=== PATIENT | male | born 1970 | race Caucasian/White ===

== ENCOUNTER 2018-03-19 05:59 | Emergency (ER) | payer BC ==
[~2018-03-19] VITALS: Ht 172.7 cm; Wt 86.4 kg
[2018-03-19] MEDS ORDERED: enoxaparin 100mg/ml syringe SUBCUT ONE (07:20)
[2018-03-19 07:51] LABS: CLARITY,URINE CLEAR (Clear); COLOR,URINE YELLOW (Yellow); GLUCOSE, URINE NEGATIVE (Neg); KETONES,URINE NEGATIVE (Neg); LEUKOCYTE ESTERASE ,URINE NEGATIVE (Neg); NITRITES, URINE NEGATIVE (Neg); OCCULT BLOOD,URINE NEGATIVE (Neg); PH,URINE 5.5 (4.8-8.0); PROTEIN,URINE NEGATIVE (Neg); UROBILINOGEN,URINE 0.2 E.U/dL (0.2-1.0)
[2018-03-19 07:52] LABS: UA COLLECTION TYPE URINAL
[2018-03-19] MEDS ORDERED: testosterone (08:04)
[2018-03-19] MEDS ORDERED: heparin 10,000 units/1 ML INJ IV ONE (08:10)
[2018-03-19 08:33] LABS: BASOPHILS % (AUTO) 0.3 % (0-1); EOSINOPHILS # (AUTO) 0.1 X10'3 (0-0.9); EOSINOPHILS % (AUTO) 1.9 % (0-6); HEMATOCRIT 42.8 % (42.0-52.0); HEMOGLOBIN 14.9 g/dl (14.0-17.9); LYMPHOCYTES # (AUTO) 0.9 X10'3 (1.1-4.8); LYMPHOCYTES % (AUTO) 15.7 % (21-51); MEAN CORPUSCULAR HEMOGLOBIN 31.4 PG (27.0-31.0); MEAN CORPUSCULAR HGB CONC 34.9 % (33.0-36.5); MEAN CORPUSCULAR VOLUME 90.1 FL (78-98); MEAN PLATELET VOLUME 8.1 FL (7.4-10.4); MONOCYTES # (AUTO) 0.4 X10'3 (0-0.9); MONOCYTES % (AUTO) 7.2 % (2-12); NEUTROPHILS # (AUTO) 4.4 X10'3 (1.8-7.7); NEUTROPHILS % (AUTO) 74.9 % (42-75); PLATELET COUNT 149 X10'3 (140-440); RED BLOOD COUNT 4.75 X10'6 (4.70-6.10); RED CELL DISTRIBUTION WIDTH 12.9 % (11.5-14.5); WHITE BLOOD COUNT 5.8 X10'3 (4.5-11.0)
[2018-03-19 08:47] LABS: ALANINE AMINOTRANSFERASE 35 U/L (12-78); ALBUMIN 3.7 G/DL (3.4-5.0); ANION GAP 10 (8-16); ASPARTATE AMINO TRANSFERASE 20 U/L (10-37); BILIRUBIN,TOTAL 1.3 MG/DL (0.1-1.0); BLOOD UREA NITROGEN 17 MG/DL (7-18); BUN/CREATININE RATIO 12.2 (5.4-32.0); CALCIUM 9.2 MG/DL (8.5-10.1); CHLORIDE 104 MMOL/L (99-107); CREATININE 1.39 MG/DL (0.60-1.10); GLUCOSE 100 MG/DL (70-104); POTASSIUM 4.3 MMOL/L (3.5-5.1); SODIUM 141 MMOL/L (135-145); TOTAL CARBON DIOXIDE 27.3 MMOL/L (24-32); TOTAL PROTEIN 7.4 G/DL (6.4-8.2); eGFR 54 ML/MIN
[2018-03-19 08:48] LABS: ALKALINE PHOSPHATASE 76 IU/L (46-116)
[2018-03-19 08:51] LABS: TROPONIN I < 0.04 NG/ML (0.0-0.05)
[2018-03-19] MEDS ORDERED: APIX5TAB3 PO (13:59)
[2018-03-19 15:23] VITALS: BP 134/78
[2018-03-21 15:07] LABS: PROTEIN S, FREE 129 % (57-157); PROTEIN S, TOTAL 93 % (60-150)
[2018-03-22 05:11] LABS: ANTITHROMBIN ACTIVITY 94 % (75-135); ANTITHROMBIN ANTIGEN 90 % (72-124)
== END 2018-03-19 15:20 | disposition home or self-care (01) ==
LOC: ER 06:00
DX: I82.402 Acute embolism and thrombosis of unspecified deep veins of left lower extremity (principal); Z85.89 Personal history of malignant neoplasm of other organs and systems; Z79.899 Other long term (current) drug therapy; Z98.890 Other specified postprocedural states
CPT/HCPCS: 36415; 71045; 80053; 81003; 81479; 83891; 83894; 83898; 84484; 85025; 85240; 85300; 85301; 85303; 85305; 85306; 86146; 86147; 93005; 93971; 96372; 99285; J1650; 85597

== ENCOUNTER 2020-11-29 10:47 | Emergency (ER) | payer BC ==
[~2020-11-29] VITALS: Ht 172.7 cm; Wt 95.7 kg
[~2020-11-29 10:47] MED LIST: APIX5TAB3 PO; testosterone
[2020-11-29 10:49] VITALS: BP 132/82
--- NOTE | 2020-11-29 10:59 | NUR ---
PT REFUSED W/C FROM TRIAGE TO ROOM
--- NOTE | 2020-11-29 11:20 | NUR ---
ULTRASOUND IN ROOM, AWAITING LAB DRAW UNTIL AFTER COMPLETE.
[2020-11-29] MEDS ORDERED: APIX5TAB3 PO (11:52)
[2020-11-29 12:04] LABS: HEMOGLOBIN 14.2 g/dl (14.0-17.9); PLATELET COUNT 184 X10'3 (140-440)
[2020-11-29 12:06] LABS: BASOPHILS % (AUTO) 0.7 % (0-1); EOSINOPHILS # (AUTO) 0.1 X10'3 (0-0.9); EOSINOPHILS % (AUTO) 1.4 % (0-6); HEMATOCRIT 41.7 % (42.0-52.0); LYMPHOCYTES % (AUTO) 19.9 % (21-51); MEAN CORPUSCULAR HEMOGLOBIN 31.4 PG (27.0-31.0); MEAN CORPUSCULAR VOLUME 92.3 FL (78-98); MEAN PLATELET VOLUME 8.2 FL (7.4-10.4); MONOCYTES # (AUTO) 0.3 X10'3 (0-0.9); MONOCYTES % (AUTO) 6.5 % (2-12); NEUTROPHILS # (AUTO) 3.6 X10'3 (1.8-7.7); NEUTROPHILS % (AUTO) 71.5 % (42-75); RED BLOOD COUNT 4.52 X10'6 (4.70-6.10); RED CELL DISTRIBUTION WIDTH 12.5 % (11.5-14.5); WHITE BLOOD COUNT 5.1 X10'3 (4.5-11.0)
[2020-11-29 12:15] LABS: ALANINE AMINOTRANSFERASE 58 U/L (12-78); ALBUMIN 3.8 G/DL (3.4-5.0); ALBUMIN/GLOBULIN RATIO 1.2 (1.1-1.5); ALKALINE PHOSPHATASE 56 IU/L (46-116); ANION GAP 9 (8-16); ASPARTATE AMINO TRANSFERASE 23 U/L (10-37); BILIRUBIN,TOTAL 0.8 MG/DL (0.1-1.0); BLOOD UREA NITROGEN 26 MG/DL (7-18); BUN/CREATININE RATIO 17.9 (5.4-32.0); CALCIUM 9.2 MG/DL (8.5-10.1); CHLORIDE 104 MMOL/L (99-107); CREATININE 1.45 MG/DL (0.60-1.10); GLUCOSE 93 MG/DL (70-104); POTASSIUM 4.2 MMOL/L (3.5-5.1); SODIUM 139 MMOL/L (135-145); TOTAL CARBON DIOXIDE 26.5 MMOL/L (24-32); eGFR 51 ML/MIN
== END 2020-11-29 13:37 | disposition home or self-care (01) ==
LOC: ER 10:48
DX: I82.4Z2 Acute embolism and thrombosis of unspecified deep veins of left distal lower extremity (principal); Z85.9 Personal history of malignant neoplasm, unspecified; Z98.890 Other specified postprocedural states; Z79.899 Other long term (current) drug therapy
CPT/HCPCS: 80053; 85025; 93971; 99284

== ENCOUNTER 2021-01-07 14:40 | Emergency (ER) | payer BC ==
[~2021-01-07] VITALS: Ht 175.3 cm; Wt 94.8 kg
[2021-01-07] MEDS ORDERED: HYDROcodone/acetaminophen 5mg/325mg tablet PO ONE (15:40)
[2021-01-07] MEDS ORDERED: ondansetron 4mg rapidly disintigrating tab PO ONE (15:40)
[2021-01-07 15:53] LABS: BASOPHILS % (AUTO) 0.9 % (0-1); EOSINOPHILS % (AUTO) 0.9 % (0-6); HEMATOCRIT 41.1 % (42.0-52.0); HEMOGLOBIN 13.6 g/dl (14.0-17.9); LYMPHOCYTES # (AUTO) 2.6 X10'3 (1.1-4.8); MEAN CORPUSCULAR HEMOGLOBIN 30.9 PG (27.0-31.0); MEAN CORPUSCULAR HGB CONC 33.1 g/dL (33.0-36.5); MEAN CORPUSCULAR VOLUME 93.4 FL (78-98); MEAN PLATELET VOLUME 7.1 FL (7.4-10.4); MONOCYTES # (AUTO) 0.6 X10'3 (0-0.9); MONOCYTES % (AUTO) 11.6 % (2-12); NEUTROPHILS # (AUTO) 1.6 X10'3 (1.8-7.7); NEUTROPHILS % (AUTO) 32.6 % (42-75); PLATELET COUNT 177 X10'3 (140-440); WHITE BLOOD COUNT 4.8 X10'3 (4.5-11.0)
[2021-01-07 16:11] LABS: PARTIAL THROMBOPLASTIN TIME 26 SECONDS (22-32)
[2021-01-07] MEDS ORDERED: apixaban 5mg tablet PO ONE (16:45)
[2021-01-07] MEDS ORDERED: apixaban 5mg tablet PO SCH (16:45)
[2021-01-07] MEDS ORDERED: APIX5TAB3 PO (16:48)
[2021-01-07 17:04] LABS: NUCLEATED RED BLOOD CELLS 1 /100WBC (0-0); TOTAL CELLS COUNTED 200
[2021-01-07 17:05] LABS: PLATELET ESTIMATE NORMAL
[2021-01-07 17:10] VITALS: BP 134/97
== END 2021-01-07 17:08 | disposition home or self-care (01) ==
LOC: ER 14:40
DX: I82.402 Acute embolism and thrombosis of unspecified deep veins of left lower extremity (principal); Z98.890 Other specified postprocedural states; Z79.01 Long term (current) use of anticoagulants
CPT/HCPCS: 36415; 85007; 85025; 85610; 85730; 93971; 99284

== ENCOUNTER 2023-01-20 21:28 | Emergency (ER) | payer BC ==
[~2023-01-20] VITALS: Ht 175.3 cm; Wt 89.0 kg
[2023-01-20 21:59] LABS: EOSINOPHILS # (AUTO) 0.1 X10'3 (0-0.9); MEAN CORPUSCULAR HEMOGLOBIN 32.2 PG (27.0-31.0); MONOCYTES # (AUTO) 0.6 X10'3 (0-0.9)
[2023-01-20 22:00] LABS: BASOPHILS # (AUTO) 0.1 X10'3 (0-0.2); BASOPHILS % (AUTO) 0.7 % (0-1); EOSINOPHILS % (AUTO) 0.8 % (0-6); HEMATOCRIT 38.7 % (42.0-52.0); HEMOGLOBIN 13.3 g/dl (14.0-17.9); LYMPHOCYTES % (AUTO) 28.3 % (21-51); MEAN CORPUSCULAR HGB CONC 34.4 g/dL (33.0-36.5); MEAN CORPUSCULAR VOLUME 93.7 FL (78-98); MEAN PLATELET VOLUME 8.2 FL (7.4-10.4); NEUTROPHILS # (AUTO) 4.2 X10'3 (1.8-7.7); NEUTROPHILS % (AUTO) 61.2 % (42-75); PLATELET COUNT 219 X10'3 (140-440); RED BLOOD COUNT 4.13 X10'6 (4.70-6.10); RED CELL DISTRIBUTION WIDTH 13.4 % (11.5-14.5); WHITE BLOOD COUNT 6.9 X10'3 (4.5-11.0)
--- NOTE | 2023-01-20 22:04 | NUR ---
Patient resting comfortably on gurney, at bedside
[2023-01-20 22:10] LABS: APTT 29 SECONDS (22-32)
[2023-01-20 22:12] LABS: ALANINE AMINOTRANSFERASE 36 U/L (12-78); ALBUMIN 3.7 G/DL (3.4-5.0); ALKALINE PHOSPHATASE 61 IU/L (46-116); ANION GAP 12 (8-16); ASPARTATE AMINO TRANSFERASE 16 U/L (10-37); BILIRUBIN,TOTAL 0.9 MG/DL (0.1-1.0); BLOOD UREA NITROGEN 21 MG/DL (7-18); BUN/CREATININE RATIO 15.2 (10.0-20.0); CHLORIDE 105 MMOL/L (99-107); CREATININE 1.38 MG/DL (0.60-1.10); GLUCOSE 95 MG/DL (70-104); POTASSIUM 4.1 MMOL/L (3.5-5.1); SODIUM 141 MMOL/L (135-145); TOTAL CARBON DIOXIDE 24.2 MMOL/L (24-32); TOTAL PROTEIN 7.4 G/DL (6.4-8.2); eGFR 54 ML/MIN
--- NOTE | 2023-01-20 23:02 | NUR ---
Patient up to the bathroom w/o problem
--- NOTE | 2023-01-20 23:26 | NUR ---
Patient with [employer] technician.
[2023-01-21 00:57] VITALS: BP 125/82
== END 2023-01-21 01:01 | disposition home or self-care (01) ==
LOC: ER 21:29
DX: M25.571 Pain in right ankle and joints of right foot (principal); R53.1 Weakness; Z79.899 Other long term (current) drug therapy
CPT/HCPCS: 36415; 80053; 85025; 85610; 85730; 93005; 93971; 99284; 99285

== ENCOUNTER 2023-11-05 08:26 | Inpatient (IN) | payer BC ==
[2023-10-30 14:17] LABS: BASOPHILS % (AUTO) 0.9 % (0-1); BILIRUBIN,URINE NEGATIVE (Neg); CLARITY,URINE CLEAR (Clear); COLOR,URINE YELLOW (Yellow); EOSINOPHILS # (AUTO) 0.1 X10'3 (0-0.9); EOSINOPHILS % (AUTO) 1.1 % (0-6); GLUCOSE, URINE NEGATIVE (Neg); KETONES,URINE NEGATIVE (Neg); LEUKOCYTE ESTERASE ,URINE NEGATIVE (Neg); LYMPHOCYTES # (AUTO) 1.5 X10'3 (1.1-4.8); LYMPHOCYTES % (AUTO) 31.5 % (21-51); MEAN CORPUSCULAR VOLUME 90.9 FL (78-98); MEAN PLATELET VOLUME 7.8 FL (7.4-10.4); MONOCYTES # (AUTO) 0.3 X10'3 (0-0.9); MONOCYTES % (AUTO) 7.2 % (2-12); NEUTROPHILS # (AUTO) 2.8 X10'3 (1.8-7.7); NEUTROPHILS % (AUTO) 59.3 % (42-75); NITRITES, URINE NEGATIVE (Neg); OCCULT BLOOD,URINE NEGATIVE (Neg); PRE OP HEMATOCRIT 41.5 % (42.0-52.0); PRE OP HEMOGLOBIN 14.1 g/dL (14.0-17.9); PRE OP PLATELET COUNT 206 X10'3 (140-440); PRE OP WHITE BLOOD COUNT 4.7 10'3 (4.8-10.8); PROTEIN,URINE NEGATIVE (Neg); RED BLOOD COUNT 4.57 X10'6 (4.70-6.10); RED CELL DISTRIBUTION WIDTH 14.3 % (11.5-14.5); UROBILINOGEN,URINE 0.2 E.U/dL (0.2-1.0)
[2023-10-30 14:25] LABS: UA COLLECTION TYPE CLN CATCH MIDSTREAM
[2023-10-30 14:39] LABS: ALBUMIN 3.7 G/DL (3.4-5.0); ALBUMIN/GLOBULIN RATIO 1.1 (1.1-1.5); ALKALINE PHOSPHATASE 81 IU/L (46-116); BLOOD UREA NITROGEN 19 MG/DL (7-18); BUN/CREATININE RATIO 16.8 (10.0-20.0); CHLORIDE 108 MMOL/L (99-107); CREATININE 1.13 MG/DL (0.60-1.10); PRE OP ALT 57 U/L (30-65); PRE OP ANION GAP 6 (8-16); PRE OP AST 25 U/L (10-37); PRE OP BILIRUB, TOTAL 0.7 MG/DL (0.0-1.0); PRE OP GLUCOSE 100 MG/DL (70-104); PRE OP POTASSIUM 4.2 MMOL/L (3.4-5.1); PRE OP SODIUM 143 MMOL/L (135-145); TOTAL CARBON DIOXIDE 28.7 MMOL/L (24-32); TOTAL PROTEIN 7.2 G/DL (6.4-8.2); eGFR 67 ML/MIN
[2023-11-05] VITALS (21 sets, daily range): BP systolic 114–142; BP diastolic 80–102; PULSE 60–86; RESP 10–16; TEMP 97.6–98.4; O2SAT 90–98
[~2023-11-05] VITALS: Ht 172.7 cm; Wt 99.8 kg
[2023-11-05] MEDS: DOCUMENT DATE & TIME OF BETA-BLOCKER PO ONE (05:30)
[~2023-11-05 08:26] MED LIST changes: +ATOR-2 PO; +CARV-50 PO; +FEBU80TA3 PO; -testosterone
[2023-11-05] MEDS: cefazolin 2gm/D5W 100mL 100 ML IV ONE (09:01)
[2023-11-05] MEDS: famotidine 20mg tablet PO ONE (09:04)
[2023-11-05] MEDS: vancomycin 1,500 MG in NS 300ml IV soln IV ONE (09:48)
[2023-11-05] MEDS: ringers solution, lacted 1,000 ML IV SCH ×2 (09:49→12:20)
[2023-11-05] MEDS ORDERED: fentaNYL/PF 50MCG/1 ML 2ML syringe ONE (12:04)
[2023-11-05] MEDS ORDERED: propofol inj 20 ML IV ONE (12:05)
[2023-11-05] MEDS ORDERED: midazolam 1 mg/ML 2ml injection ONE (12:05)
[2023-11-05] MEDS ORDERED: dexamethasone sod phosphate 4mg/ml inj. ONE (12:05)
[2023-11-05] MEDS ORDERED: rocuronium 10mg/ml inj IV ONE (12:05)
[2023-11-05] MEDS ORDERED: LIDOcaine 1%/PF 5ML 10 MG/ML VIAL ONE (12:05)
[2023-11-05] MEDS ORDERED: iohexol 350 MG/ML 50ML vial IV ONE (12:11)
[2023-11-05] MEDS ORDERED: ondansetron/PF 4mg/2ml inj IV PRN ×2 (12:20→13:15)
[2023-11-05] MEDS ORDERED: meperidine/PF 25mg/ml syringe IV PRN ×2 (12:20)
[2023-11-05] MEDS ORDERED: labetalol 20mg/4ml (5mg/ml) syringe IV PRN (12:20)
[2023-11-05] MEDS ORDERED: enalaprilat dihydrate 2.5mg/2ml vial IV PRN (12:20)
[2023-11-05] MEDS ORDERED: morphine 4 MG/ML inj SYRINge IV PRN (12:20)
[2023-11-05] MEDS ORDERED: proCHLORperazine 10 MG/2 ml inj IV PRN (12:20)
[2023-11-05] MEDS ORDERED: neostigmine methylsulfate 1 MG/ML 10ml vial ONE (12:23)
[2023-11-05] MEDS ORDERED: glycopyrrolate 0.2mg/ml inj ONE (12:23)
[2023-11-05] MEDS ORDERED: protamine sulf. 10mg/ml inj. IV ONE (12:23)
[2023-11-05] MEDS ORDERED: sevoflurane 250ml liquid IH ONE (12:23)
[2023-11-05] MEDS ORDERED: heparin 1,000 units/ml 10ml inj ONE (12:23)
[2023-11-05] MEDS ORDERED: ondansetron/PF 4mg/2ml inj ONE (12:40)
[2023-11-05] MEDS ORDERED: protamine sulfate 10mg/ml inj. ONE (13:06)
[2023-11-05] MEDS ORDERED: magnesium 2GM in 50ml NS 50 ML IV PRN (13:15)
[2023-11-05] MEDS ORDERED: potassium Cl 40MEQ/1/2NS 520ml 520 ML IV PRN (13:15)
[2023-11-05] MEDS ORDERED: pantoprazole 40mg Tablet.DR PO PRN (13:15)
[2023-11-05] MEDS ORDERED: potassium Cl 20mEq/100mL bag 100 ML IV PRN (13:15)
[2023-11-05] MEDS ORDERED: potassium Cl 40MEQ/270ML bag 250 ML IV PRN (13:15)
[2023-11-05] MEDS ORDERED: potassium CL 10mEq/100ml bag 100 ML IV PRN (13:15)
[2023-11-05] MEDS ORDERED: magnesium 4gm in 100ml NS 100 ML IV PRN (13:15)
[2023-11-05] MEDS ORDERED: docusate sod 100mg capsule PO PRN (13:15)
[2023-11-05] MEDS: normal saline 1000ml 1,000 ML IV SCH (13:15)
[2023-11-05] MEDS ORDERED: potassium Cl 20 mEq SR tablet PO PRN (13:15)
[2023-11-05] MEDS ORDERED: diphenhydrAMINE 25mg capsule PO PRN (13:15)
[2023-11-05] MEDS: morphine 2 MG/ML inj. syringe IV PRN (13:41)
[2023-11-05] MEDS: meperidine/PF 25mg/ml syringe IV PRN (13:54)
[2023-11-05] MEDS: sod chloride 0.9% 10ml flush syringe IV SCH (16:31)
[2023-11-05] MEDS: apixaban 5mg tablet PO SCH (21:13)
[2023-11-05] MEDS: atorvastatin 20mg tablet PO SCH (21:13)
[2023-11-05] MEDS: HYDROcodone/acetaminophen 5mg/325mg tablet PO PRN (21:14)
[2023-11-05] MEDS: carVEDilol 12.5mg tablet PO SCH (21:17)
[2023-11-05] MEDS: acetaminophen 325mg tablet PO PRN (23:25)
[2023-11-06] VITALS (11 sets, daily range): BP systolic 96–159; BP diastolic 56–112; PULSE 73–85; RESP 10–19; TEMP 97.4–98.1; O2SAT 93–96
[2023-11-06] MEDS: ALPRAZolam 0.25mg tablet PO PRN (01:23)
[2023-11-06 06:46] LABS: BASOPHILS % (AUTO) 0 % (0-1); EOSINOPHILS % (AUTO) 0 % (0-6); HEMATOCRIT 41.2 % (42.0-52.0); HEMOGLOBIN 14.2 g/dl (14.0-17.9); LYMPHOCYTES # (AUTO) 0.8 X10'3 (1.1-4.8); LYMPHOCYTES % (AUTO) 7.7 % (21-51); MEAN CORPUSCULAR HEMOGLOBIN 31.6 PG (27.0-31.0); MEAN CORPUSCULAR HGB CONC 34.4 g/dL (33.0-36.5); MEAN CORPUSCULAR VOLUME 91.8 FL (78-98); MEAN PLATELET VOLUME 8.4 FL (7.4-10.4); MONOCYTES # (AUTO) 0.4 X10'3 (0-0.9); MONOCYTES % (AUTO) 3.4 % (2-12); NEUTROPHILS # (AUTO) 9.6 X10'3 (1.8-7.7); NEUTROPHILS % (AUTO) 88.9 % (42-75); PLATELET COUNT 189 X10'3 (140-440); RED BLOOD COUNT 4.49 X10'6 (4.70-6.10); RED CELL DISTRIBUTION WIDTH 14.2 % (11.5-14.5); WHITE BLOOD COUNT 10.8 X10'3 (4.5-11.0)
[2023-11-06 06:55] LABS: ALANINE AMINOTRANSFERASE 45 U/L (12-78); ALBUMIN 3.6 G/DL (3.4-5.0); ALKALINE PHOSPHATASE 74 IU/L (46-116); ANION GAP 13 (8-16); ASPARTATE AMINO TRANSFERASE 22 U/L (10-37); BILIRUBIN,TOTAL 1.2 MG/DL (0.1-1.0); BLOOD UREA NITROGEN 25 MG/DL (7-18); BUN/CREATININE RATIO 20.2 (10.0-20.0); CALCIUM 8.7 MG/DL (8.5-10.1); CHLORIDE 100 MMOL/L (99-107); CREATININE 1.24 MG/DL (0.60-1.10); GLUCOSE 150 MG/DL (70-104); MAGNESIUM 1.6 MG/DL (1.5-2.4); POTASSIUM 4.4 MMOL/L (3.5-5.1); PRO BRAIN NATRIURETIC PEPTIDE 91 PG/ML (0-125); SODIUM 135 MMOL/L (135-145); TOTAL CARBON DIOXIDE 21.6 MMOL/L (24-32); TOTAL PROTEIN 7.2 G/DL (6.4-8.2); eCRCL 65 ML/MIN; eGFR 61 ML/MIN
[2023-11-06] MEDS ORDERED: febuxostat 40mg tablet PO SCH (08:00)
[2023-11-06] MEDS ORDERED: ibuprofen tablet 400 MG TABLET PO SCH (08:30)
[2023-11-06] MEDS: colchicine 0.6mg tablet PO SCH (12:17)
[2023-11-06] MEDS: morphine 2 MG/ML inj. syringe IV PRN (12:18)
[2023-11-06] MEDS: hydrALAZINE 20mg/ml inj. IV PRN (14:53)
[2023-11-06] MEDS: febuxostat 40mg tablet PO SCH (19:23)
[2023-11-06] MEDS: proCHLORperazine 10 MG/2 ml inj IV PRN (19:26)
[2023-11-07 02:00] VITALS: BP 143/98; PULSE 84; RESP 20; TEMP 97.9; O2SAT 96
[2023-11-07] MEDS: ondansetron/PF 4mg/2ml inj IV PRN (02:53)
[2023-11-07] MEDS: labetalol 20mg/4ml (5mg/ml) syringe IV PRN (04:54)
[2023-11-07 06:00] VITALS: BP 135/92; PULSE 60; RESP 22; TEMP 98.1; O2SAT 94
[2023-11-07 08:57] VITALS: RESP 22; O2SAT 94
[2023-11-07 11:23] VITALS: BP 137/104; PULSE 90; RESP 16; TEMP 98.2; O2SAT 95
[2023-11-07 15:18] VITALS: BP 108/69; PULSE 85; RESP 14; TEMP 98.4; O2SAT 94
[2023-11-07] MEDS ORDERED: COL0.6T PO (15:36)
== END 2023-11-07 16:26 | disposition home or self-care (01) | DRG 229 ==
LOC: PAS IN 08:26 → PCU 3S 14:30
PROVIDERS: ADMIT Student in an Organized Health Care Education/Training Program; ATTEND Student in an Organized Health Care Education/Training Program
PROC: 02PA3DZ Removal of Intraluminal Device from Heart, Percutaneous Approach (ICD-10-PCS; 2023-11-05)
PROC: B24BZZ4 Ultrasonography of Heart with Aorta, Transesophageal (ICD-10-PCS; 2023-11-05)
PROC: 02H73DZ Insertion of Intraluminal Device into Left Atrium, Percutaneous Approach (ICD-10-PCS; principal; 2023-11-05 12:23)
DX: I48.91 Unspecified atrial fibrillation (principal); Z00.6 Encounter for examination for normal comparison and control in clinical research program; I31.39 Other pericardial effusion (noninflammatory); I48.92 Unspecified atrial flutter; I10 Essential (primary) hypertension; E78.5 Hyperlipidemia, unspecified; M10.9 Gout, unspecified; Z85.528 Personal history of other malignant neoplasm of kidney; Z90.5 Acquired absence of kidney; Z86.73 Personal history of transient ischemic attack (TIA), and cerebral infarction without residual deficits
CPT/HCPCS: 33340; 36415; 71046; 76937; 80053; 81003; 82948; 83735; 83880; 85025; 85347; 85610; 85730; 86885; 86900; 86901; 86920; 87081; 93005; 93308; 93312; 93325; A4615; A4618; A4620; A6258; A6449; C1760; C1893; C1894; G0378; J0360; J0690; J0780; J1100; J1644; J2175; J2250; J2270; J2405; J2704; J2710; J2720; J3010; J3370; J3490; J7030; J7040; J7120; Q9967